=== PATIENT | female | born 1975 ===

== ENCOUNTER 2017-08-08 17:18 | Emergency (ER) | payer MEDICAID ==
[2017-08-08 17:34] VITALS: BP 145/98; PULSE 83; RESP 16; TEMP 98.2; O2SAT 98
--- NOTE | 2017-08-08 18:24 | CP.PCM.CON ---
History of Present Illness - History of Present Illness History of Present Illness: 42 y/o female with PMHx of depression, anxiety, and bipolar disorder seen at bedside for right foot pain. 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 She states that the pain then recurred at the top of her foot near the 2nd-4th toes and she had another surgery done. Pt states that the pain has recurred again now in the last few weeks and is constant. She states that it feels numb and tingly, and radiates up to her knee and hip. She states it feels as though she is stepping on a pebble when she walks. She admits to having lower back pain. She also states the tingling and numbness travels to her right arm. She denies ever seeing a neurologist or being evaluated for sciatica. Denies F/C/N/V/CP/SOB PSH: right foot surgery x 2, D&C, left shoulder surgery All: NKDA Soc: social EtOH; denies cigarette or illicit drug use Fam Hx: admits to family hx of mental illness Review of Systems - Review of Systems All systems: reviewed and no additional remarkable complaints except (per HPI) Meds Allergies/Adverse Reactions: Allergies Allergy/AdvReac Type Severity Reaction Status Date / Time mushroom Allergy ANAPHYLAXIS Verified 08/08/17 17:28 Physical Exam - Constitutional Appears: Well, Non-toxic, No Acute Distress - Extremities Exam Additional comments: RLE focused exam: Vasc : DP/PT pulses palpable 2/4. Temperature gradient warm to cool from proximal to distal. CFT < 3 sec to all digits. Localized edema noted sub met 2 and 3. Ortho: Flexible hammered digits 2-5. Moderate tenderness to palpation of 2nd interspace, mild tenderness to palpation of 3rd interspace. Neuro: protective sensation grossly intact via SWMF assessment Derm: Surgical scar noted to dorsum of 3rd metatarsal. No open lesions, no erythema, no ecchymosis - Neurological Exam Neurological exam: Alert - Psychiatric Exam Psychiatric exam: Normal Affect, Normal Mood Results - Vital Signs Recent Vital Signs: Last Vital Signs Temp 98.2 F 08/08/17 17:29 Pulse 83 08/08/17 17:29 Resp 16 08/08/17 17:29 BP 145/98 H 08/08/17 17:29 Pulse Ox 98 08/08/17 17:29 Assessment & Plan - Assessment and Plan (Free Text) Assessment: 42 y/o female with 1) right foot 2nd interspace pain and 2) right foot tingling and numbness with radiation to the right leg, knee, hip and lower back Plan: Pt seen and evaluated in ED Discussed with attending Dr. Aubrey Handley foot x-rays reviewed by me - No acute osseous abnormalities identified on right foot x-ray, no fractures or dislocations Pt encouraged to purchase OTC inserts to accommodate possible neuroma Encouraged patient to wear wider sneakers that will minimize compression of nerve and worsening of symptoms Recommended pt to seek referral to neurology for evaluation of possible sciatica Pt to follow up in [facility] podiatry clinic on Friday with Dr. Burgos for further evaluation and management of condition Thank you for this consult
--- NOTE | 2017-08-08 18:27 | ED PDOC ---
Lower Extremity Pain/Injury Time Seen by Provider: 08/08/17 17:35 Chief Complaint (Nursing): Lower Extremity Problem/Injury Chief Complaint (Provider): Lower Extremity Problem/Injury History Per: Patient History/Exam Limitations: no limitations Onset/Duration Of Symptoms: Days (x2) Current Symptoms Are (Timing): Still Present Additional Complaint(s): 42 year old female who presents to the emergency department with a complaint of right foot pain radiating up back to right arm ongoing for 2 days. Denied any trauma, weakness, fever or chills. Of note, patient reported similar symptoms in 07/2015 that subsequently led to removal of osteofibroma from right foot then had 3 more removed 6 months after initial surgery. 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 - Surgical History Surgical History: Denies: No Surg Hx Other surgeries: removal of osteofibroma in right foot - Family History Family History: States: Unknown Family Hx - Social History Current smoker - smoking cessation education provided: No Alcohol: None Drugs: Denies - Home Medications Home Medications: Ambulatory Orders Medication Instructions Recorded Diclofenac Potassium 50 mg PO TID PRN #20 tablet 08/08/17 - Allergies Allergies/Adverse Reactions: Allergies Allergy/AdvReac Type Severity Reaction Status Date / Time mushroom Allergy ANAPHYLAXIS Verified 08/08/17 17:28 Review of Systems ROS Statement: Except As Marked, All Systems Reviewed And Found Negative Constitutional: Negative for: Fever, Chills Musculoskeletal: Positive for: Arm Pain (right-sided), Back Pain (right-sided), Foot Pain (right-sided). Negative for: Other (trauma) Neurological: Negative for: Weakness Physical Exam - Reviewed Nursing Documentation Reviewed: Yes (break in skin integrity, erythema or ulcer noted) Vital Signs Reviewed: Yes - Physical Exam Appears: Positive for: Well, Non-toxic, No Acute Distress Pulses-Dorsalis Pedis (R): 2+ Extremity: Positive for: Tenderness (mildy to right plantar surface of metatarsal, 2nd to 4th digits), Capillary Refill (<2 seconds), Swelling (mildy to right plantar surface of metatarsal, 2nd to 4th digits). Negative for: Deformity - ECG O2 Sat by Pulse Oximetry: 98 (RA) Pulse Ox Interpretation: Normal - Progress ED Course And Treament: Pt. evaluated by [facility], podiatry resident, who spoke with Dr. Burgos and arrangements made for outpt f/u on Friday. Medical Decision Making Medical Decision Making: Initial Impression: Foot pain Initial Plan: * Toradol 60mg IM * Xray foot (right) Scribe Attestation: Documented by Charley Eugene, acting as a scribe for Marcell Chinchilla PA-C. Provider Scribe Attestation: All medical record entries made by the Scribe were at my direction and personally dictated by me. I have reviewed the chart and agree that the record accurately reflects my personal performance of the history, physical exam, medical decision making, and the department course for this patient. I have also personally directed, reviewed, and agree with the discharge instructions and disposition. Disposition - Clinical Impression Clinical Impression: Foot pain - Patient ED Disposition Is Patient to be Admitted: No - Disposition Referrals: [facility]le [facility] [Outside] Laila Julian MD [Medical Doctor] - Disposition: Routine/Home Disposition Time: 19:44 Condition: STABLE Additional Instructions: Follow up with [facility] on Friday. [phone] Prescriptions: Diclofenac Potassium 50 mg PO TID PRN #20 tablet PRN Reason: Pain Instructions: Arthralgia (ED) Forms: Danielle Barillas (Irish), [facility] ED School/Work Excuse Print Language: SINHALA
--- NOTE | 2017-08-09 13:19 | RAD ---
PROCEDURE: Right Foot Radiographs. HISTORY: pain COMPARISON: None. FINDINGS: BONES: No evidence of acute displaced fracture nor dislocation so far as can be seen. Note that the mild hammertoe deformities of the 2nd 3rd 4th and 5th digits limited evaluation to some degree JOINTS: . As above. SOFT TISSUES: No radiopaque foreign bodies. No subcutaneous emphysema is identified. OTHER FINDINGS: None. IMPRESSION: No evidence of acute displaced fracture nor dislocation. If symptoms persist, internal derangement or occult fracture suspected clinically consider followup MRI.
== END 2017-08-08 19:01 | disposition home or self-care (01) ==
LOC: H.ER 17:18
DX: M79.671 Pain in right foot (principal); F31.9 Bipolar disorder, unspecified; F41.9 Anxiety disorder, unspecified
CPT/HCPCS: 73630; 96372; 99282; J1885